=== PATIENT | female | born 1995 | race Caucasian/White ===

== ENCOUNTER 2019-06-04 20:51 | Emergency (ER) | payer OTHER ==
[~2019-06-04] VITALS: Ht 157.5 cm; Wt 90.0 kg
[2019-06-04 21:10] VITALS: BP 142/73
[2019-06-04 22:58] LABS: INFLUENZA A PATIENT NEGATIVE (NEGATIVE); INFLUENZA B PATIENT NEGATIVE (NEGATIVE)
[2019-06-04] MEDS ORDERED: ONDA4TAB12 PO (23:11)
--- NOTE | 2019-06-04 23:12 | PHYS DOC ---
Past Medical History Past Medical History: No Pertinent History Past Surgical History: No Surgical History Alcohol Use: Occasionally Adult General Chief Complaint Chief Complaint: FLU SYMPTOM HPI HPI Patient is a 23 year old female who presents with nausea and vomiting has been ongoing since 3:30 PM. Patient also states she's fatigue. The patient states that she 7 weeks . Denies fever, denies any other symptoms. Complete ROS were reviewed and found to be within normal limits, except as documented in the HPI Physical Exam Physical Exam Constitutional: Well developed, well nourished, no acute distress, non-toxic appearance. [] HENT: Normocephalic, atraumatic, bilateral external ears normal, oropharynx moist, no oral exudates, nose normal. [] Abdomen: Bowel sounds normal, soft, no tenderness, no masses, no pulsatile masses. [] Extremities: No tenderness, no cyanosis, no clubbing, ROM intact, no edema. [] Neurologic: Alert and oriented X 3, normal motor function, normal sensory function, no focal deficits noted. [] Psychologic: Affect normal, judgement normal, mood normal. [] Current Patient Data Vital Signs Vital Signs Date Time Temp Pulse Resp B/P (MAP) Pulse Ox O2 Delivery O2 Flow Rate FiO2 06/04/19 21:10 98.6 74 14 142/73 (96) 99 Room Air 98.6 Lab Values Laboratory Tests Test 06/04/19 20:55 Influenza Type A Antigen Negative (NEGATIVE) Influenza Type B Antigen Negative (NEGATIVE) EKG EKG [] Radiology/Procedures Radiology/Procedures [] Course & Med Decision Making Course & Med Decision Making Pertinent Labs and Imaging studies reviewed. (See chart for details) Flu is negative. Will give Zofran and d/c home. Dragon Disclaimer Dragon Disclaimer This electronic medical record was generated, in whole or in part, using a voice recognition dictation system. Departure Departure Impression: Primary Impression: Nausea and vomiting during Disposition: HOME, SELF-CARE Condition: STABLE Referrals: NO PCP (PCP) Patient Instructions: Nausea and Vomiting Additional Instructions: Thank you for visiting [facility]. We appreciate you trusting us with your care. If any additional problems come up don't hesitate to return to visit us. Please follow up with your primary care provider so they can plan additional care if needed and know about the problem that you had. If symptoms worsen come back to the Emergency Department. Any concerning symptoms that start such as chest pain, shortness of air, weakness or numbness on one side of the body, running high fevers or any other concerning symptoms return to the ER. Scripts Ondansetron (ONDANSETRON ODT) 4 Mg Tab.rapdis 1 TAB PO PRN Q6-8HRS PRN for NAUSEA, #16 TAB Prov: MAGAN WESTFALL APRN 06/04/19 MAGAN WESTFALL APRN Jun 04, 2019 23:12
[2019-06-04] MEDS: ONDANSETRON ODT 4 MG TAB.RAPDIS. PO ONE (23:29)
== END 2019-06-04 23:28 | disposition home or self-care (01) ==
LOC: ER 20:51
DX: O21.9 Vomiting of pregnancy, unspecified (principal); Z3A.01 Less than 8 weeks gestation of pregnancy
CPT/HCPCS: 87804; 99284; Q0162